=== PATIENT | female | born 1950 | race Caucasian/White ===

== ENCOUNTER → 2018-04-09 | Outpatient (CLI) | payer OTHER, MEDICARE | LOC: RAD 15:43 | DX: M41.84 Other forms of scoliosis, thoracic region (principal) ==

== ENCOUNTER → 2020-04-30 | Day surgery (SDC) | payer OTHER, MEDICARE ==
[~2020-04-30] VITALS: Ht 170.2 cm; Wt 122.5 kg
[~2020-04-30] MED LIST: ALLOPURINOL 10100 M1 PO; FAMOTIDINE 20 M20 MG PO; FUROSEMIDE 20 M20 M1 PO; IBUPROFEN 200200 M1 PO; INDOMETHACIN SR75 M1 PO; IRON325 M1 PO; K-DUR 20 MEQ T20 MEQ PO; LISINOPRIL20 MG PO; NORCO 5-325 TA1 EAC1 PO; NORVASC5 MG PO; PROVENTIL HFA6.7 G1 INH; PROZAC20 MG PO; TYLENOL EXTRA500 MG PO; VITAMIN B-121000 MC2 SUBLING; VITAMIN D PO; WOMEN'S 50 PLU1 EAC1 PO
[2020-04-30 13:31] VITALS: BP 133/66
[2020-04-30 13:58] LABS: CALCIUM 8.8 mg/dL (8.5-10.1); CREATININE 0.9 mg/dL (0.6-1.0); POTASSIUM 3.8 mmol/L (3.5-5.1)
== END | disposition home or self-care (01) ==
LOC: LAB 04-27 11:23 → EDSTATUS 04-28 09:36 → OR 09:32
PROVIDERS: ATTEND Preventive Medicine Occupational Medicine
DX: Z46.2 Encounter for fitting and adjustment of other devices related to nervous system and special senses (principal); G89.4 Chronic pain syndrome; M51.36 Other intervertebral disc degeneration, lumbar region; M47.816 Spondylosis without myelopathy or radiculopathy, lumbar region; M48.061 Spinal stenosis, lumbar region without neurogenic claudication; I10 Essential (primary) hypertension; F32.9 Major depressive disorder, single episode, unspecified; F41.9 Anxiety disorder, unspecified; J45.909 Unspecified asthma, uncomplicated; Z98.890 Other specified postprocedural states; Z79.899 Other long term (current) drug therapy; Z90.710 Acquired absence of both cervix and uterus; Z90.49 Acquired absence of other specified parts of digestive tract; Z11.59 Encounter for screening for other viral diseases; Z96.651 Presence of right artificial knee joint; Z98.0 Intestinal bypass and anastomosis status; Z98.49 Cataract extraction status, unspecified eye; Z88.0 Allergy status to penicillin
CPT/HCPCS: 50101; 50386; 50417; 56524; 56526; 56528; 57199; 57200; 57201; 58155; 62110; 62850; 70005